=== PATIENT | female | born 1980 | race Caucasian/White ===

== ENCOUNTER 2022-03-09 09:35 | Emergency (ER) | payer OTHER, SELFPAY ==
[2022-03-09 09:41] VITALS: BP 128/62; PULSE 70; RESP 16; TEMP 36.3; O2SAT 99
--- NOTE | 2022-03-09 09:51 | ED.GENADULT ---
HPI - General Adult General Chief complaint: Dizziness Stated complaint: lightheaded dizzy Time Seen by Provider: 03/09/22 09:52 Source: patient, RN notes reviewed and old records reviewed Mode of arrival: ambulatory Limitations: no limitations History of Present Illness HPI narrative: 41-year-old female who presents to [facility] with complaints complaints of episode at work today where she became sweaty, dizzy, weak, and had a bad headache which started after the dizziness,they did call EMS but she refused to go to the hospital. Patient reports that she had similar episode 3 weeks ago which resolved on it's own. Patient reports that she did not fall or hit her head or have LOC.Patient has been COVID vaccinated and had Covid in 2020,denies any fevers chills or sweats or any other ill symptoms. Patient denies skipping meals, is drinking fluids well and states no problem with sleeping, does work many hours per week. MD complaint: sweaty, dizziness, weak, and headache Onset (ago): hour(s) (this morning episode at work) Treatments prior to arrival: none Related Data Home Medications Medication Instructions Recorded Confirmed albuterol sulfate 90 mcg/actuation 90 mcg inhalation Q4-6H [id number] 03/09/22 03/09/22 aerosol inhaler aripiprazole 5 mg tablet 5 mg PO DAILY 03/09/22 03/09/22 duloxetine 60 mg capsule,delayed 60 mg PO DAILY 03/09/22 03/09/22 release tramadol 50 mg tablet 50 mg PO DAILY 03/09/22 03/09/22 Allergies Allergy/AdvReac Type Severity Reaction Status Date / Time amoxicillin Allergy Mild Other Verified 03/09/22 09:53 clavulanic acid Allergy Mild Other Verified 03/09/22 09:53 Review of Systems Review of Systems: CONSTITUTIONAL: Denies fever, chills, or sweats. EYES: Denies visual changes, redness, or discharge. ENT: Denies rhinorrhea, congestion, sore throat, or otalgia. CARDIOVASCULAR: Denies chest pain, palpitations, or edema. RESPIRATORY: Denies cough or dyspnea. GASTROINTESTINAL: Denies abdominal pain, nausea, vomiting, or diarrhea. GENITOURINARY: Denies dysuria or hematuria. SKIN: Denies rash or itching. MUSCULOSKELETAL: Denies back pain, joint pain, or myalgia. NEUROLOGIC: positive for headache,no numbness,episode this am of dizziness and feeling weak which occurred at work this morning PSYCHIATRIC: Denies history of anxiety or depression. All systems reviewed & are unremarkable except as noted in HPI and below PMFSH Past Medical History Medical History (Updated 03/09/22 @ 10:42 by Stephie Bustillo NP) Bipolar 1 disorder Depression Fibromyalgia Surgical History Surgical History (Updated 03/09/22 @ 11:09 by Stephie Bustillo NP) H/O tubal ligation History of endometrial ablation Hx of lymph node excision Family History Family History (Updated 03/09/22 @ 11:07 by Stephie Bustillo NP) Father Acute myocardial infarction Heart disease Esophageal cancer Social History Social History (Updated 03/09/22 @ 11:06 by Stephie Bustillo NP) Smoking status: Former smoker Tobacco type: cigarettes Additional smoking assessment comments: quit 1 1/2 months ago Alcohol intake: current Alcohol use details: rare social Substance use type: does not use Living arrangements: with family Gender identity (if verbalized by the patient): Female Comments At time of signature, agree with nursing past medical, surgical, social and family history. There is no relevant family history pertinent to the presenting complaint Exam Narrative: GENERAL: Well-appearing, well-nourished, and in no acute distress. HEAD: Normocephalic, atraumatic. EYES: PERRLA and EOMI. ENT: Nares clear, no rhinorrhea or epistaxis. Mucous membranes moist.left TM bulging with no redness and dull light reflex, right TM normal with good light reflex, throat pink with no lesions or exudates. NECK: Supple.no lymphadenopathy CHEST: Clear to auscultation. No respiratory distress.SAO2 99%on room air HEART: Regular rate an
== END 2022-03-09 10:55 | disposition home or self-care (01) ==
PROVIDERS: Emergency Provider Registered Nurse; PCP Family Medicine
DX: H69.92 Unspecified Eustachian tube disorder, left ear (principal); R42 Dizziness and giddiness; Z20.822 Contact with and (suspected) exposure to COVID-19; Z87.891 Personal history of nicotine dependence; M79.7 Fibromyalgia; Z86.16 Personal history of COVID-19
CPT/HCPCS: 87426; 87804; 99203; C9803; G0463

== ENCOUNTER 2023-09-12 08:09 | Emergency (ER) | payer OTHER, SELFPAY ==
[2023-09-12 08:18] VITALS: BP 144/80; PULSE 59; RESP 16; TEMP 36.6; O2SAT 99
--- NOTE | 2023-09-12 08:34 | ED.NAVMDI ---
HPI - Nausea/Vomiting/Diarrhea General Chief complaint: Nausea/Vomiting/Diarrhea Stated complaint: nausea/diarrhea Time Seen by Provider: 09/12/23 08:35 Source: patient, RN notes reviewed and old records reviewed Mode of arrival: ambulatory Limitations: no limitations History of Present Illness HPI Narrative: 42-year-old female [facility] with complaints of nausea, vomiting, and diarrhea since 4:00 a.m. today with cramping to abdomen. Patient reports that she does have some Zofran at home and has taken for her symptoms. Patient reports that her daughter was sick over the weekend with similar symptoms and just returned to school today. Patient denies any known fevers, chills, or body aches. Patient denies any urinary burning, frequency or urgency or any CVA tenderness. MD elicited complaint: nausea, vomiting and diarrhea Onset (ago): day(s) (399 today) Description of vomiting: watery Description of diarrhea: watery Associated nausea: Yes Treatment prior to arrival: other (zofran) Related Data Home Medications Medication Instructions Recorded Confirmed aripiprazole 5 mg tablet 5 mg PO DAILY 03/09/22 09/12/23 tramadol 50 mg tablet 50 mg PO DAILY 03/09/22 09/12/23 Allergies Allergy/AdvReac Type Severity Reaction Status Date / Time amoxicillin Allergy Mild Other Verified 03/09/22 09:53 clavulanic acid Allergy Mild Other Verified 03/09/22 09:53 Review of Systems Review of Systems: CONSTITUTIONAL: Denies fever, chills, or sweats. ENT: Denies rhinorrhea, congestion, sore throat, or otalgia. CARDIOVASCULAR: Denies chest pain, palpitations, or edema. RESPIRATORY: Denies cough or dyspnea. GASTROINTESTINAL: Reports abdominal cramping,positive for nausea, vomiting, diarrhea. GENITOURINARY: Denies dysuria or hematuria. SKIN: Denies rash or itching. MUSCULOSKELETAL: Denies back pain, joint pain, or myalgia. NEUROLOGIC: Denies headache, numbness, or weakness. All systems reviewed & are unremarkable except as noted in HPI and below PMFSH Past Medical History Medical History Bipolar 1 disorder Depression Fibromyalgia Surgical History Surgical History H/O tubal ligation History of endometrial ablation Hx of lymph node excision Family History Family History Father Acute myocardial infarction Heart disease Esophageal cancer Social History Social History (Updated 09/13/23 @ 07:39 by Stephie Bustillo NP) Smoking status: Current every day smoker Tobacco type: cigarettes Alcohol intake: current Alcohol use details: rare social Substance use type: does not use Living arrangements: with family Gender identity (if verbalized by the patient): Female Comments At time of signature, agree with nursing past medical, surgical, social and family history. There is no relevant family history pertinent to the presenting complaint Exam Narrative: GENERAL: Well-appearing, well-nourished, and in no acute distress. HEAD: Normocephalic, atraumatic. EYES: PERRLA, conjunctivae clear, and EOMI. ENT: Nares clear. Mucous membranes moist. Oropharynx without edema, erythema, or lesions. Tonsils not enlarged and without exudate. NECK: Supple. No lymphadenopathy CHEST: Speaks in full sentences. No respiratory distress.SAO2 99% on room air HEART: Regular rate and rhythm. ABDOMEN: Soft, flat, nondistended. No guarding, rebound tenderness, or rigid. No pulsatilla masses. Bowel sounds present in all four quadrants. No organomegaly. Negative Roa?s sign. No periumbilical tenderness. No Supra public tenderness or distension. Good femoral pulses bilaterally. No hernia noted. No scars or surface trauma. positive for some cramping to abdomen no McBurney point tenderness SKIN: Warm, dry, no rash. NEURO:? Alert and oriented x3. PSYCH: Norm
== END 2023-09-12 08:54 | disposition home or self-care (01) ==
PROVIDERS: Emergency Provider Registered Nurse; PCP Family Medicine
DX: B34.9 Viral infection, unspecified (principal); R11.2 Nausea with vomiting, unspecified; R19.7 Diarrhea, unspecified; F17.210 Nicotine dependence, cigarettes, uncomplicated; Z79.891 Long term (current) use of opiate analgesic; Z79.899 Other long term (current) drug therapy
CPT/HCPCS: 99211; G0463

== ENCOUNTER 2025-04-24 15:54 | Emergency (ER) | payer OTHER, SELFPAY ==
--- OUTSIDE RECORDS SUMMARY | 2025-04-24 15:55 | XMS_ITS | Clinical Summary ---
Author Organization [facility] Address [address] [place] [address] Phone Care Team Providers Care Household Appliance Installer Name Role Phone Satish Grove MD Primary Care Provider [phone] Allergies Active Allergy Reactions Criticality Noted Date Comments Amoxicillin-Pot Clavulanate Nausea Low 04/30/20 24 Medications ARIPiprazole (ABILIFY) 5 MG Tablet Take 5 mg by mouth daily. 4 Active traMADol (ULTRAM) 50 MG Tablet Take 50 mg by mouth. 4 Active DULoxetine (CYMBALTA) [address] Particles Take 60 mg by mouth. 2 Active albuterol 108 (90 Base) MCG/ACT Aerosol Solution TAKE 2 PUFFS BY MOUTH EVERY 6 HOURS NEEDED FOR WHEEZE OR FOR SHORTNESS OF BREATH Active Active Problems No known active problems Social History Tobacco Use Types Packs/Day Years Used Date Smoking Tobacco: Every Day Cigarettes Smokeless Tobacco: Never Tobacco Cessation:Ready to Q uit: Not Asked; Counseling Given: Not Answered Alcohol Use Standard Drinks/Week Comments Yes 0 (1 standard drink = 0.6 oz pur e alcohol) Comments Unknown Sex and Gender Information Value Date Recorded Sex Assigned at Not on file Legal Sex Female 11:20 PM CDT Gender Identity Not on file Sexual Orientation Not on file Last Filed Vital Signs Vital Sign Reading Time Taken Comments Blood Pressure 124/78 04/30/2024 12:34 PM CDT Pulse 84 04/30/2024 12:34 PM CDT Temperature 36 C (96.8 F) 04/30/2024 12:34 PM CDT Respiratory Rate 18 04/30/2024 12:34 PM CDT Oxygen Saturation 98% 04/30/2024 12:34 PM CDT Inhaled Oxygen Concentration - - Weight - - Height - - Body Mass Index - - Plan of Treatment Health Maintenance Due Date Last Done Comments Hepatitis C Virus (HCV) Screening 1982 Mammogram 1982 Hepatitis B Immunization (1 of 3 - 19+ 3-dose series) 2001 Pneumococcal Immunization Combined (1 of 2 - PCV) 2001 Pap Smear 11/25/2003 Human Papillomavirus (HPV) Immunization (1 - 3-dose SCDM series) 2009 Cervical Cancer Screening (CCS) 2012 HPV/Cotest 2012 Discussion re Starting/Frequency of Mammograms 2022 Influenza Immunization (#1) 2025 SARS-COV-2 Immunization (3 - season) 2025 06/01/2021, 04/27/2021 Respiratory Syncytial Virus (RSV) Immunization (Adult) (1 - 1-dose 75+ series) 2057 TdaP Immunization Completed 03/02/2021 Meningococcal Immunization (ACWY) Aged Out No longer eligible b ased on patient's age to complete this topic Rotavirus Immunization Aged Out No lo nger eligible based on patient's age to complete this topic Care Teams Household Appliance Installer Relationship Specialty Start Date End Date Satish Grove MD [address] [place] [address] PCP - General Internal Medicine 04/30/24
--- OUTSIDE RECORDS SUMMARY | 2025-04-24 15:55 | XMS_ITS | Clinical Summary ---
Author Organization [facility] [place] Address [address] [place] [address] Care Team Providers Care Painting Technician Name Role Phone Satish Grove MD Primary Care Provider [phone] Allergies Active Allergy Reactions Criticality Noted Date Comments Amoxicillin-Pot Clavulanate Nausea and Vomiting Low Medications traMADol (ULTRAM) 50 mg tablet Take 50 mg by mouth. 8 Active amitriptyline (ELAVIL) 25 mg tablet Take 25 mg by mouth daily. 9 Active DULoxetine (CYMBALTA) 60 mg Capsule, Delayed Release(E.C.) Take 60 mg by mouth. 9 Active albuterol HFA 90 mcg inhalerIndicatio ns:Acute bronchitis, unspecified organism Take 2 Puffs by inhalation every 6 hours as needed for Shortness of Breath. 18 Gram 3 0 Active Active Problems Problem Noted Date Diagnosed Date Fibromyalgia 12/19/2018 TMJ (dislocation of temporomandibular joint) Tobacco use 05/20/2018 Family History Medical History Relation Name Comments Asthma Brother No Known Problems Daughter Diabetes Father Heart Attack Father Unknown Maternal Grandfather Unknown Maternal Grandmother Other Mother fibromyalgia, s cleoderma SLE Mother Unknown Paternal Grandfather Cancer Paternal Grandmother Diabetes Sister Other Sister fibromyalgia Asthma Son Relation Name Status Comments Brother Alive Daughter Alive Father Alive Maternal Grandfather Maternal Grandmother Mother Alive Paternal Grandfather Paternal Grandmother Sister Alive Son Alive Social History Tobacco Use Types Packs/Day Years Used Date Smoking Tobacco: Every Day Cigarettes Smokeless Tobacco: Never Alcohol Use Standard Drinks/Week Comments Yes 0 (1 standard drink = 0.6 oz pur e alcohol) social Comments No Sex and Gender Information Value Date Recorded Sex Assigned at Not on file Legal Sex Female 8:14 AM CDT Gender Identity Not on file Sexual Orientation Not on file Last Filed Vital Signs Vital Sign Reading Time Taken Comments Blood Pressure 114/68 09/10/2019 1:02 PM CDT Pulse 83 09/10/2019 1:02 PM CDT Temperature 36.7 C (98 F) 09/10/2019 1:02 PM CDT Respiratory Rate 18 09/10/2019 1:02 PM CDT Oxygen Saturation 97% 09/10/2019 1:02 PM CDT Inhaled Oxygen Concentration - - Weight 89.4 kg (197 lb) 09/10/2019 1:02 PM CDT Height 160 cm (5' 3) 09/10/2019 1:02 PM CDT Body Mass Index 34.9 09/10/2019 1:02 PM CDT Plan of Treatment Health Maintenance Due Date Last Done Comments DTAP/TDAP/TD VACCINES (1 - Tdap) 2001 HEPATITIS B VACCINES (1 of 3 - 19+ 3-dose series) 2001 HPV/Cotest (21-29) 11/25/2003 HPV VACCINES (1 - 3-dose SCD M series) 2009 HPV/Cotest (30-65) 2012 CERVICAL CANCER SCREENING 10/30/2020 PAP SMEAR 10/30/2020 10/30/2017 (Prev iously completed) BREAST CANCER SCREENING 2022 INFLUENZA VACCINE (#1) 2025 Care Teams Painting Technician Relationship Specialty Start Date End Date Satish Grove MD PCP - General Family Practice 03/12/18
--- OUTSIDE RECORDS SUMMARY | 2025-04-24 15:55 | XMS_ITS | Clinical Summary ---
Author Organization [facility] Care Team Providers Care Rouge Sifter And Miller Name Role Phone Satish Grove MD Primary Care Provider [phone] Allergies Active Allergy Reactions Criticality Noted Date Comments Amoxicillin-Pot Clavulanate Nausea And Vomiting Low Medications albuterol HFA (PROVENTIL HFA,VENTOLIN HFA,PROAIR HFA) 90 mcg/actuation inhalerIndicat ions:Pharyngit is due to other organism TAKE 2 PUFFS BY MOUTH EVERY 6 HOURS NEEDED FOR WHEEZE OR FOR SHORTNESS OF BREATH 6.7 each 07/21/19 25 Active Additional Information Patient not taking.Reported on 01/22/[address] (CYMBALTA) 60 mg capsuleIndicat ions:Fibromyal finn,major depressive disorder Take 1 capsule (60 mg total) by mouth 2 (two) times a day 180 capsule 3 01/23/20 25 Active ARIPiprazole (ABILIFY) 5 mg tabletIndicati ons:Moderate episode of recurrent major depressive disorder (HCC) Take 1 tablet (5 mg total) by mouth daily 90 tablet 1 01/23/20 25 Active ketorolac (TORADOL) 10 mg tablet Take 1 tablet (10 mg total) by mouth every 6 (six) hours as needed for pain 20 tablet 02/16/20 25 Active lidocaine viscous (XYLOCAINE) 2 % solution Apply 15 mL to the mouth or throat every 3 (three) hours 200 mL 02/16/20 25 Active HYDROcodone-ac etaminophen (NORCO) 5-325 mg per tabletIndicati ons:Pain Take 1 tablet by mouth every 6 (six) hours as needed for pain for up to 12 doses 12 tablet 02/16/20 25 Active traMADoL (ULTRAM) 50 mg tabletIndicati ons:Polyarthro ligia Take 1 tablet (50 mg total) by mouth every 6 (six) hours as needed for pain 42 tablet 1 04/22/20 25 Active traMADoL (ULTRAM) 50 mg tabletIndicati ons:Polyarthro ligia Take 1 tablet (50 mg total) by mouth every 6 (six) hours as needed for pain 60 tablet 01/23/20 25 025 Discontinued Active Problems Problem Noted Date Diagnosed Date Acute bronchitis 10/31/2024 Acute bronchospasm 10/31/2024 Moderate episode of recurrent major depressive d isorder 11/29/2023 Assessment & Plan (01/22/2025 4:23 PM CDT): No acute changes. Will restart duloxetine and aripiprazole. Red flags reviewed. Follow-up in 3 months. Sooner for any concerns. Assessment & Plan (11/29/2023 5:13 PM CDT): Stable on current regimen. Referral to Psychiatry placed. Red flags reviewed. Will continue to monitor. Annual physical exam 11/29/2023 Assessment & Plan (01/22/2025 4:23 PM CDT): In regard to health maintenance, Mammogram- declines [employer] utd w/ MANAGER OF DISTRIBUTION Eat a healthy diet: focus on lean meats and proteins, more fruits, vegetables and whole grains and low in sugars and fats. Limit red meat and avoid processed meat. Maintain a healthy weight; avoid being overweight. Aim for a normal body mass index (BMI) of 18.5-24.9. Help learning to eat healthier, we can set up appointment with insurance account specialist/yoke setter. Have an active lifestyle, strive for 30 minutes of moderate exercise 5 times a week and strength or resistance training at least twice a week. Use broad-spectrum (UVA+UVB) sunscreen with SPF 30 or greater, is water resistant, limit time spent in the sun (10 am-4pm), wear hat, wear UV protective clothing, wear sunglasses. Never use a tanning bed. Skin that was irradiated may be more sensitive over your lifetime. Do not smoke or chew tobacco; participate in a smoking cessation program. Limit alcohol intake, 1 drink per day for a woman and 2 drinks per day for a man. Assessment & Plan (11/29/2023 5:14 PM CDT): Visit preventive in nature. Labs ordered. Encouraged to complete. We reviewed medications, chronic conditions, risk factors, lifestyle recommendations. Reviewed immunization recommendations. Follow-up in 3 months for chronic conditions and 1 year for annual wellness. Tobacco dependence due to cigarettes 06/08/2018 Cough 03/09/2016 Overview (10/07/2016): Cough Bipolar affective disorder, currently depressed, mild 03/02/2016 Overview (10/05/2016): Bipolar affective disorder, currently depressed, mild Assessment & Plan (11/29/2023 5:13 PM CDT): Reports stable on current regimen. Will place referral to Psychiatry. Red flags reviewed. She is agreeable with plan states understanding. Polyarthropathy 03/02/2016 Overview (10/05/2016): Polyarthropathy or polyarthritis of multiple sites Assessment & Plan (01/22/2025 4:24 PM CDT): Controlled on marijuana and p.r.n. tramadol. Will order JANNY and rheumatoid factor. Offered referral to Rheumatology but she declines. Will continue to monitor. Resolved Problems Problem Noted Date Diagnosed Date Resolved Date Screening mammogram for breast cancer 11/29/2023 01/22/2025 Assessment & Plan (11/29/2023 5:12 PM CDT): Mammogram ordered. Will plan accordingly once results are received. Severe obesity (BMI 35.0-39. 9) with comorbidity 10/01/2019 11/17/2020 Unspecified vitamin D deficiency 10/13/2016 07/24/2018 Overview (2016): Vitamin D deficiency Tobacco use 03/09/2016 06/08/2018 Overview (06/06/2018): Tobacco use Encounters Date Type Department Care Team Description 04/21/2025 Telephone [facility] [address] [phone] Shantel Guajardo NP 02/15/2025 3:32 PM CDT - 02/15/2025 4:28 PM CDT Emergency [facility] Emergency Department [address] [place] [address] Pain, dental (Primary Dx) Discharge Disposition: Discharge to home or self care 01/22/2025 10:30 AM CDT Office Visit [facility] [address] [phone] Shantel Guajardo NP Annual physical exam (Primary Dx); Moderate episode of recurrent major depressive disorder (HCC); Polyarthropathy; Class 1 obesity due to excess calories with serious comorbidity and body mass index (BMI) of 30.0 to 30.9 in adult from Last 3 Months Immunizations Immunization Administration Dates Next Due Influenza, Unspecified 09/30/2023(Deferr ed: Patient Refused),03/23/2021(Deferred: Patient Refused),08/12/2020(Deferred: Patient Refused),04/12/2020(Deferred: Patient Refused),04/01/2020(Deferred: Patient Refused),07/06/2019(Deferred: Patient Refused),07/02/2019(Deferred: Patient Refused),07/02/2019(Deferred: Patient Refused),07/02/2019(Deferred: Patient Refused),07/02/2019(Deferred: Patient Refused),05/23/2019(Deferred: Other),04/22/2019(Deferred: Patient Refused),04/01/2019(Deferred: Patient Refused),07/02/2018(Deferred: Patient Refused),06/06/2018(Deferred: Patient Refused),06/06/2018(Deferred: Patient Refused),10/22/2017(Deferred: Patient Refused),07/02/2017(Deferred: Patient Refused),07/03/2016(Deferred: Patient Refused) Tdap 03/02/2021 Surgical History Surgery Date Site/Laterality Comments CHOLECYSTECTOMY Cholecystectomy TUBAL LIGATION Bilateral tubal ligation Medical History Medical History Date Comments Hx Other Medical bulging disc C3 and C4; Comments: [facility] 04/20/2015 - Hx Other Medical 2014 fibromyalgia; C omments: [facility] 04/20/2015 - Depression Depression Fibromyalgia Family History Medical History Relation Name Comments Other Brother 2 Alive and well; Diabetes type II Father Jorge Alberto Diabetes me llitus type 2; Heart disease Father Jorge Alberto Cardiovascular disease; Hypertension Father Jorge Alberto Hypertension; Hypertension Mother Cece Hypertension; Other Mother Cece auto immune; Other Sister 2 Alive and well; Relation Name Status Comments Brother 1 Alive Brother 2 Father Jorge Alberto Alive Mother Cece Alive Sister 1 Alive Sister 2 Social History Tobacco Use Types Packs/Day Years Used Date Smoking Tobacco: Every Day Cigarettes 0.5 20 Smokeless Tobacco: Never Tobacco Cessation:Ready to Q uit: No; Counseling Given: Yes Alcohol Use Standard Drinks/Week Comments Yes 0 (1 standard drink = 0.6 oz pur e alcohol) Social PHQ-2 Answer Date Recorded PHQ-2 Total Score (If total score is 3 or more points, staff should administer the PHQ-9) 6 01/22/2025 PHQ-9 Answer Date Recorded PHQ-9 Total Score 17 01/22/2025 Personal Safety Answer Date Recorded Have you ever been in or are you currently in a harmful physical or emotional relationship or is someone making you feel afraid or unsafe? Denies 02/15/2025 Comments No Sex and Gender Information Value Date Recorded Sex Assigned at Not on file Legal Sex Female 3:23 PM MORTICIAN SUPPLIES SALES REPRESENTATIVE Gender Identity Not on file Sexual Orientation Not on file Obstetrics History Last Filed Vital Signs Vital Sign Reading Time Taken Comments Blood Pressure 129/83 02/15/2025 4:28 PM CDT Pulse 50 02/15/2025 4:28 PM CDT Temperature 36.5 C (97.7 F) 02/15/2025 3:33 PM CDT Respiratory Rate 18 02/15/2025 4:28 PM CDT Oxygen Saturation 98% 02/15/2025 4:28 PM CDT Inhaled Oxygen Concentration - - Weight 77.1 kg (170 lb) 02/15/2025 3:33 PM CDT Height 160 cm (5' 3) 02/15/2025 3:33 PM CDT Body Mass Index 30.11 02/15/2025 3:33 PM CDT Plan of Treatment Health Maintenance Due Date Last Done Comments Breast Cancer Screening-Mammogram 1982 Cervical Cancer Screening 1982 Hepatitis C Screening 1982 Varicella Vaccines (1 of 2 - 13+ 2-dose series) 11/25/1995 Hepatitis B Screening 2000 Pneumococcal vaccine <65 (1 of 2 - PCV) 2001 HPV Vaccines (1 - 3-dose SCD M series) 2009 Covid-19 Vaccine (3 - 2024-2 6 season) 2025 06/01/2021, 04/27/2021 Influenza Vaccine (#1) 2025 Depression Screening 01/22/2026 01/22/2025, 01/22/2025, 11/29/2023, Additional history exists Regular Well Visit/Exam 18-64 01/22/2026 01/22/2025, 11/29/2023 DTaP/Tdap/Td Vaccine (2 - Td or Tdap) 03/02/2031 03/02/2021 Insurance [employer] Care Teams Rouge Sifter And Miller Relationship Specialty Start Date End Date Satish Grove MD [address] [place] [address] PCP - General 09/29/16
[2025-04-24 16:00] VITALS: BP 128/85; PULSE 74; RESP 20; TEMP 36.6; O2SAT 98
--- NOTE | 2025-04-24 16:13 | ED.URI ---
HPI - URI/Sore Throat General Chief Complaint: Upper Respiratory Infection Stated Complaint: Chest Congestion/Headache/Cough Time Seen by Provider: 04/24/25 16:13 Source: patient Mode of arrival: ambulatory Limitations: no limitations History of Present Illness HPI Narrative: 44-year-old female presents with complaint of nasal congestion, sinus pressure and headaches, postnasal drainage for the past 2 weeks. Taking [id number] sinus medications without relief of symptoms. Reports drainage has changed from clear to yellowish green. Feels feverish. Positive fatigue. All systems reviewed and negative except as noted above. Related Data Home Medications ?Medication ?Instructions ?Recorded ?Confirmed ?Last Taken ?Type aripiprazole 5 mg tablet 5 mg PO DAILY 03/09/22 09/12/23 Unknown History tramadol 50 mg tablet 50 mg PO DAILY 03/09/22 09/12/23 Unknown History duloxetine 60 mg capsule,delayed mg PO 04/24/25 Unknown History release Allergies Allergy/AdvReac Type Severity Reaction Status Date / Time amoxicillin AdvReac Mild Other Verified 04/24/25 16:00 clavulanic acid AdvReac Mild Other Verified 04/24/25 16:00 PMFSH Past Medical History Medical History Bipolar 1 disorder Depression Fibromyalgia Surgical History Surgical History H/O tubal ligation History of endometrial ablation Hx of lymph node excision Family History Family History Father Acute myocardial infarction Heart disease Esophageal cancer Social History Social History (Updated 09/13/23 @ 07:39 by Stephie Bustillo, [employer]) Smoking status: Current every day smoker Tobacco type: cigarettes Alcohol intake: current Alcohol use details: rare social Substance use type: does not use Living arrangements: with family Gender identity (if verbalized by the patient): Female Comments At time of signature, agree with nursing past medical, surgical, social and family history. There is no relevant family history pertinent to the presenting complaint. Exam Narrative: GENERAL: This is a well-nourished, well-developed patient, ill-appearing but in no acute distress HEAD: normocephalic, atraumatic. EYES: PERRL. Sclera clear/white. Vision is grossly intact. EARS: External ears normal, auditory canals clear and without drainage, TMs normal without perforation. Hearing grossly intact. NOSE: External nose normal with purulent nasal drainage, erythema swelling to bilateral nares maxillary sinus tenderness on palpation bilaterally THROAT: Mucous membranes moist, erythema postnasal drainage NECK: Neck supple, non-tender without lymphadenopathy, masses or thyromegaly. CARDIOVASCULAR: Regular rate and rhythm without murmurs, gallops, or rubs. RESPIRATORY: Clear to auscultation. Breath sounds equal bilaterally. No wheezes, rales, or rhonchi. SKIN: warm, Dry, intact with no suspicious lesions or rash, good texture and turgor. NEURO: awake, alert, and oriented to person, place and time. There were no obvious focal neurologic abnormalities. EXTREMITIES: No joint tenderness, effusion, or edema noted. Course Course Level of Care: Express Care Visit Vital Signs Vital signs: Vital Signs Temperature 36.6 C 04/24/25 16:00 Pulse Rate 74 04/24/25 16:00 Respiratory Rate 20 04/24/25 16:00 Blood Pressure 128/85 04/24/25 16:00 Pulse Oximetry 98 04/24/25 16:00 Oxygen Delivery Room Air 04/24/25 16:00 Temperature 36.6 C 04/24/25 16:00 Pulse Rate 74 04/24/25 16:00 Respiratory Rate 20 04/24/25 16:00 Blood Pressure 128/85 04/24/25 16:00 Pulse Oximetry 98 04/24/25 16:00 Oxygen Delivery Room Air 04/24/25 16:00 reviewed MDM - URI/Sore Throat MDM Narrative Medical decision making narrative: will treat for bacterial sinusitis due to duration of symptoms and exam findings. Patient is alert, nontoxic. Patient agrees with plan of care. Differential Diagnosis Differential diagnosis: Likely upper respiratory infection, sinusitis, viral infection, influenza and pharyngitis Discharge Plan Discharge Clinical Impression: Acute bacterial sinusitis Patient Disposition: Home Condition: Stable Instructions: Antibiotic Form, Sinusitis (ED) Additional Instructions: Take medications as prescribed. Purchase [id number] Claritin D and take as directed on packaging. This medication is found by the pharmacist. Drink at least 64 oz of water a day. Follow-up with your doctor if symptoms are not improving. Patient Language: Sinhala Prescriptions: New doxycycline hyclate 100 mg capsule 100 mg PO BID 7 Days Qty: 14 0RF benzonatate 200 mg capsule 200 mg PO TID PRN (Reason: cough) Qty: 20 0RF No Action tramadol 50 mg tablet 50 mg PO DAILY aripiprazole 5 mg tablet 5 mg PO DAILY duloxetine 60 mg capsule,delayed release(DR/EC) PO Follow-up/Referrals: Harms,Satish Kinney M.D. [Primary Care Provider] Time of Disposition: 16:23
== END 2025-04-24 16:24 | disposition home or self-care (01) ==
PROVIDERS: Emergency Provider Nurse Practitioner Family; PCP Family Medicine
DX: J01.90 Acute sinusitis, unspecified (principal); B96.89 Other specified bacterial agents as the cause of diseases classified elsewhere; F17.210 Nicotine dependence, cigarettes, uncomplicated
CPT/HCPCS: 99213; G0463